=== PATIENT | male | born 1985 | race Asian ===

== ENCOUNTER 2017-02-13 10:43 | Emergency (ER) | payer OTHER ==
[2017-02-13 10:51] VITALS: TEMP 98.4
[2017-02-13] MEDS ORDERED: KETOROLAC 30 MG/ML 1 ML VIAL IVP STA (11:36)
[2017-02-13] MEDS ORDERED: TAMSULOSIN 0.4 MG CAP.ER.24H PO STA (11:36)
[2017-02-13] MEDS ORDERED: MORPHINE SULFATE 4 MG/ML SYRINGE IVP STA (11:36)
--- NOTE | 2017-02-13 11:38 | ED ---
General Adult HPI - General Chief complaint: Abdominal Pain Stated complaint: Abd Pain Time Seen by Provider: 02/13/17 11:21 Source: patient, EMS, RN notes reviewed, old records reviewed Mode of arrival: EMS Limitations: language barrier - History of Present Illness Initial comments: This is a 31-year-old male the ER for evaluation of abdominal pain, flank pain. Patient is kidney stone pain. Patient states she has a history of kidney stones blood in his urine that is exactly of kidney stones ago. History is obtained through who is here also assisted with patient. Patient has no modifying factors for pain at home. Denies any fevers. No nausea vomiting - Related Data Previous Rx's Medication Instructions Recorded HYDROcodone/APAP 5-325MG [[place] 1 tab PO Q6HR PRN #30 tab 02/13/17 5-325] Naproxen [Naprosyn] 500 mg PO Q12HR #30 tab 02/13/17 Tamsulosin [Flomax] 0.4 mg PO DAILY #30 cap 02/13/17 Allergies Allergy/AdvReac Type Severity Reaction Status Date / Time No Known Allergies Allergy Unverified 02/13/17 11:14 Review of Systems ROS Statement: Those systems with pertinent positive or pertinent negative responses have been documented in the HPI. ROS Other: All systems not noted in ROS Statement are negative. Past Medical History Past Medical History: Unable to Obtain History of Any Multi-Drug Resistant Organisms: None Reported Past Surgical History: Unable to Obtain Past Psychological History: No Psychological Hx Reported Smoking Status: Current every day smoker Past Alcohol Use History: None Reported Past Drug Use History: None Reported General Exam Limitations: language barrier General appearance: alert, in no apparent distress Head exam: Present: atraumatic, normocephalic, normal inspection Eye exam: Present: normal appearance, PERRL, EOMI. Absent: scleral icterus, conjunctival injection, periorbital swelling ENT exam: Present: normal exam, mucous membranes moist Neck exam: Present: normal inspection. Absent: tenderness, meningismus, lymphadenopathy Respiratory exam: Present: normal lung sounds bilaterally. Absent: respiratory distress, wheezes, rales, rhonchi, stridor Cardiovascular Exam: Present: regular rate, normal rhythm, normal heart sounds. Absent: systolic murmur, diastolic murmur, rubs, gallop, clicks GI/Abdominal exam: Present: soft, normal bowel sounds. Absent: distended, tenderness, guarding, rebound, rigid Extremities exam: Present: normal inspection, full ROM, normal capillary refill. Absent: tenderness, pedal edema, joint swelling, calf tenderness Back exam: Present: normal inspection Neurological exam: Present: alert, oriented X3, CN II-XII intact Psychiatric exam: Present: normal affect, normal mood Skin exam: Present: warm, dry, intact, normal color. Absent: rash Course Vital Signs 02/13/17 02/13/17 10:47 11:43 Temperature 98.4 F Pulse Rate 68 70 Respiratory 20 18 Rate Blood Pressure 156/106 123/78 O2 Sat by Pulse 98 99 Oximetry - Reevaluation(s) Reevaluation #1: Patient has adequate pain control at this time Spoke with family regarding risks and benefits of getting CAT scan at this time. Is time, advised against Medical Decision Making - Medical Decision Making 28 female in the ER for evaluation of kidney stone pain. Patient has no history of kidney stones urine negative for infection, we'll treated with pain control, follow-up with urology if the kidney stone is not passed in the next 2 days - Lab Data Lab Results 02/13/17 Range/Units 11:45 Urine Color Yellow Urine Appearance Clear (Clear) Urine pH 5.5 (5.0-8.0) Ur Specific [place] 1.016 (1.001-1.035) Urine Protein Negative (Negative) Urine Glucose (UA) Negative (Negative) Urine Ketones Negative (Negative) Urine Blood Large H (Negative) Urine Nitrite Negative (Negative) Urine Bilirubin Negative (Negative) Urine Urobilinogen <2.0 (<2.0) mg/dL Ur Leukocyte Esterase Negative (Negative) Urine RBC >182 H (0-5) /hpf Urine WBC 1 (0-5) /hpf Urine Mucus Rare H (None) /hpf Disposition Clinical Impression: Kidney stone on left side Disposition: HOME SELF-CARE Condition: Good Instructions: Kidney Stones (ED) Prescriptions: HYDROcodone/APAP 5-325MG [[place] 5-325] 1 tab PO Q6HR PRN #30 tab PRN Reason: Pain Naproxen [Naprosyn] 500 mg PO Q12HR #30 tab Tamsulosin [Flomax] 0.4 mg PO DAILY #30 cap Referrals: Anupam Samaniego MD [STAFF PHYSICIAN] - 1-2 days
[2017-02-13 11:45] VITALS: BP 123/78; PULSE 70; RESP 18
[2017-02-13 12:02] LABS: Appearance,Urine Clear (Clear); Bilirubin,Urine Negative (Negative); Glucose,Urine (UA) Negative (Negative); Ketones,Urine Negative (Negative); Leukocyte Esterase,Urine Negative (Negative); Mucus,Urine Rare /hpf; Nitrite,Urine Negative (Negative); PH, Urine 5.5 (5.0-8.0); Particle Count 3538; Protein,Urine Negative (Negative); RBC,Urine >182 /hpf (0-5); Specific Gravity,Urine 1.016 (1.001-1.035); UA Billing (MACRO vs. MICRO) MICRO; Urobilinogen,Urine <2.0 mg/dL (<2.0); WBC,Urine 1 /hpf (0-5)
== END 2017-02-13 12:09 | disposition home or self-care (01) ==
LOC: EC 10:43
DX: N20.0 Calculus of kidney (principal); F17.200 Nicotine dependence, unspecified, uncomplicated
CPT/HCPCS: 99284; 96374; 81001; 87086; J1885